=== PATIENT | female | born 1950 | race Caucasian/White ===

== ENCOUNTER 2020-03-25 14:11 | Emergency (ER) | payer MEDICARE ==
--- NOTE | 2020-03-25 14:42 | ER Document Report ---
ED Medical Screen (RME) - General Chief Complaint: Back Pain Stated Complaint: BACK PAIN/FALL Time Seen by Provider: 03/25/20 14:37 Mode of Arrival: Medic Information source: Patient Notes: 69-year-old female presented to ED for complaint of pain to her entire back and her right shoulder. She states she had back surgery with plates and screws from cervical spine 1-9 at [facility] about 3 weeks ago. She also had a pain stimulator placed at [facility] a couple weeks ago. She states she saw her doctor on Friday and they told her that if she fell and had any pain to come to the emergency room immediately. She states she is having pain to the right shoulder as well as from the neck to the lower back mainly on the upper back and neck and the right shoulder. I have ordered CT of the neck x-rays of the thoracic spine and x-ray of the right shoulder. She did receive fentanyl in the EMS. She states she does take Percocet 09/25/2024 at home but did not take any today because she was feeling better and did not take any before getting in the ambulance. Patient is alert oriented respirations regular nonlabored speaking in full sentences. I have greeted and performed a rapid initial assessment of this patient. A comprehensive ED assessment and evaluation of the patient, analysis of test results and completion of medical decision making process will be conducted by an additional ED providers. Physical Exam - Vital signs Vitals: Temp Pulse Resp BP Pulse Ox 98.7 F 77 18 142/77 H 100 03/25/20 14:21 03/25/20 14:21 03/25/20 14:21 03/25/20 14:21 03/25/20 14:21 Course - Vital Signs Vital signs: Temp Pulse Resp BP Pulse Ox 98.7 F 77 18 142/77 H 100 03/25/20 14:21 03/25/20 14:21 03/25/20 14:21 03/25/20 14:21 03/25/20 14:21
--- NOTE | 2020-03-25 15:27 | RADIOLOGY REPORT (SQ) ---
EXAM DESCRIPTION: CT CERVICAL SPINE WITHOUT IMAGES COMPLETED DATE/TIME: 03/25/2020 3:03 pm REASON FOR STUDY: Fall today recent cervical surgery COMPARISON: None. TECHNIQUE: Axial images acquired through the cervical spine without intravenous contrast. Images re viewed with lung, soft tissue and bone windows. Reconstructed coronal and sagittal MPR images review ed. Images stored on PACS. All CT scanners at this facility use dose modulation, iterative reconstruction, and/or weight based d osing when appropriate to reduce radiation dose to as low as reasonably achievable (ALARA). [facility]: Dose Right [facility]: CareDose [facility]: Dose Right [facility]: Teradose 4D [facility]: Smart [employer] RADIATION DOSE: CT Rad equipment meets quality standard of care and radiation dose reduction techniq ues were employed. CTDIvol: 23.6 mGy. DLP: 497 mGy-cm. mGy. LIMITATIONS: None. FINDINGS: ALIGNMENT: Anatomic. MINERALIZATION: Normal. VERTEBRAL BODIES: No fractures or dislocation. DISCS: No large disc bulges or hernias suggested. FACETS, LATERAL MASSES, POSTERIOR ELEMENTS: No fractures. No dislocation. No acute findings. HARDWARE: Anterior instrumentation spanning C3 through C7, intact as evaluated. VISUALIZED RIBS: No fractures. LUNG APICES AND SOFT TISSUES: No significant or acute findings. OTHER: No other significant finding. IMPRESSION: Postoperative changes. No evidence of malalignment or fracture. TECHNICAL DOCUMENTATION: JOB ID: [id number] Quality ID # [id number]: Final reports with documentation of one or more dose reduction techniques (e.g., Au tomated exposure control, adjustment of the mA and/or kV according to patient size, use of iterative reconstruction technique) 2010 [employer]- All Rights Reserved Reading location - IP/workstation name: [email or web address]
--- NOTE | 2020-03-25 15:42 | RADIOLOGY REPORT (SQ) ---
EXAM DESCRIPTION: T SPINE AP/LAT; L SPINE WHOLE; SHOULDER RIGHT 2 OR MORE VIEWS IMAGES COMPLETED DATE/TIME: 03/25/2020 3:28 pm REASON FOR STUDY: Fall with increasing pain; fall pain; Fall today pain in right shoulder COMPARISON: None. FINDINGS: Three views right shoulder: Osteopenic. No evidence of fracture. No worrisome bone lesi on. Two view thoracic spine: Osteopenic. Slight convex left scoliosis in the lower segments. Epidural spine leads project with tips midthoracic. No mediastinal widening or lung lesions. Five view lumbosacral spine: Extensive prior surgery with instrumentation throughout. Dorsal rods a nd screws and right lateral fixation devices at the thoracolumbar junction look intact. Limiting ost eopenia. No gross fracture. TECHNICAL DOCUMENTATION: JOB ID: [id number] Reading location - IP/workstation name: [email or web address]
--- NOTE | 2020-03-25 15:42 | RADIOLOGY REPORT (SQ) ---
EXAM DESCRIPTION: T SPINE AP/LAT; L SPINE WHOLE; SHOULDER RIGHT 2 OR MORE VIEWS IMAGES COMPLETED DATE/TIME: 03/25/2020 3:28 pm REASON FOR STUDY: Fall with increasing pain; fall pain; Fall today pain in right shoulder COMPARISON: None. FINDINGS: Three views right shoulder: Osteopenic. No evidence of fracture. No worrisome bone lesi on. Two view thoracic spine: Osteopenic. Slight convex left scoliosis in the lower segments. Epidural spine leads project with tips midthoracic. No mediastinal widening or lung lesions. Five view lumbosacral spine: Extensive prior surgery with instrumentation throughout. Dorsal rods a nd screws and right lateral fixation devices at the thoracolumbar junction look intact. Limiting ost eopenia. No gross fracture. TECHNICAL DOCUMENTATION: JOB ID: [id number] Reading location - IP/workstation name: [email or web address]
--- NOTE | 2020-03-25 15:42 | RADIOLOGY REPORT (SQ) ---
EXAM DESCRIPTION: T SPINE AP/LAT; L SPINE WHOLE; SHOULDER RIGHT 2 OR MORE VIEWS IMAGES COMPLETED DATE/TIME: 03/25/2020 3:28 pm REASON FOR STUDY: Fall with increasing pain; fall pain; Fall today pain in right shoulder COMPARISON: None. FINDINGS: Three views right shoulder: Osteopenic. No evidence of fracture. No worrisome bone lesi on. Two view thoracic spine: Osteopenic. Slight convex left scoliosis in the lower segments. Epidural spine leads project with tips midthoracic. No mediastinal widening or lung lesions. Five view lumbosacral spine: Extensive prior surgery with instrumentation throughout. Dorsal rods a nd screws and right lateral fixation devices at the thoracolumbar junction look intact. Limiting ost eopenia. No gross fracture. TECHNICAL DOCUMENTATION: JOB ID: [id number] Reading location - IP/workstation name: [email or web address]
[2020-03-25] MEDS ORDERED: ONDANSETRON 4 MG TAB.RAPDIS PO ONE (16:31)
[2020-03-25] MEDS ORDERED: FENTANYL CITRATE INJ/PF 100 MCG/2 ML AMPUL IM ONE (16:31)
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
[2020-03-25 17:21] VITALS: BP 153/69
== END 2020-03-25 17:17 | disposition home or self-care (01) ==
LOC: ER 14:11
DX: T14.8XXA Other injury of unspecified body region, initial encounter (principal); M25.511 Pain in right shoulder; M54.2 Cervicalgia; M54.5 Low back pain; W01.0XXA Fall on same level from slipping, tripping and stumbling without subsequent striking against object, initial encounter; Y93.89 Activity, other specified; Y92.008 Other place in unspecified non-institutional (private) residence as the place of occurrence of the external cause; M47.812 Spondylosis without myelopathy or radiculopathy, cervical region; M47.814 Spondylosis without myelopathy or radiculopathy, thoracic region; M41.9 Scoliosis, unspecified; M85.88 Other specified disorders of bone density and structure, other site; G89.29 Other chronic pain; Z96.82 Presence of neurostimulator; Z98.890 Other specified postprocedural states; Z79.891 Long term (current) use of opiate analgesic
CPT/HCPCS: 99285; 96372; 72110; 73030; 72070; 72125; A9270; J3010; S0119